=== PATIENT | female | born 1950 | race Two or more races ===

== ENCOUNTER → 2018-01-18 | Outpatient (CLI) | payer MEDICARE, MEDICAID | END | disposition home or self-care (01) | LOC: CFH 10:00 | DX: M81.0 Age-related osteoporosis without current pathological fracture (principal); N95.9 Unspecified menopausal and perimenopausal disorder; Z78.0 Asymptomatic menopausal state | CPT/HCPCS: 77080 ==

== ENCOUNTER 2020-04-16 09:17 | Emergency (ER) | payer MEDICARE, MEDICAID ==
[~2020-04-16] VITALS: Ht 152.4 cm; Wt 65.0 kg
--- NOTE | 2020-04-16 09:46 | NUR ---
PT WITH C/O COUCH AND FEVER LIKE SYMPTOMS X1 WEEK. PT STATES SIG OTHER WITH SAME SYMPTOMS. PT DESCRIBES PAIN "PINPOINT IN MY L UPPER BACK" NO SOB REPORTED. PT ALSO HAS HEALING SHINGLE RASH ON CHEST. ERMD IN TO EVAL PT, AWAITING ORDERS AT THIS TIME, PT TO ALL MONITORS
[2020-04-16] MEDS ORDERED: MORPHINE SULFATE 4 MG/ML, 1ML IVPush PRN (10:00)
[2020-04-16] MEDS ORDERED: MORPHINE SULFATE 4 MG/ML, 1ML ONE (10:06)
[2020-04-16 10:14] LABS: BASOPHILS # (AUTO) 0.02 x10^3/uL (0-0.1); BASOPHILS % (AUTO) 0 % (0-1); EOSINOPHILS # (AUTO) 0.01 x10^3/uL (0-0.4); EOSINOPHILS % (AUTO) 0 % (1-7); LYMPHOCYTES # (AUTO) 0.92 x10^3/uL (1-3.4); LYMPHOCYTES % (AUTO) 21 % (22-44); MD NO; MEAN CORPUSCULAR HEMOGLOBIN 28.4 pg (27.0-34.8); MEAN CORPUSCULAR HGB CONC 32.9 g/dL (32.4-35.8); MEAN PLATELET VOLUME 8.4 fL (7.4-10.4); MONOCYTES # (AUTO) 0.66 x10^3/uL (0.2-0.8); MONOCYTES % (AUTO) 15 % (2-9); NEUTROPHILS # (AUTO) 2.77 x10^3/uL (1.8-6.8); NEUTROPHILS % (AUTO) 63 % (42-75); PLATELET COUNT 162 x10^3/uL (130-400); RED BLOOD COUNT 4.67 x10^6/uL (3.82-5.3); RED CELL DISTRIBUTION WIDTH 13.3 % (9.6-15.2)
[2020-04-16 10:24] LABS: ALBUMIN 3.7 g/dL (3.4-5.0); ANION GAP 7 mmol/L (5-15); CALCIUM 8.8 mg/dL (8.5-10.1); CHLORIDE 103 mmol/L (98-107)
[2020-04-16 10:29] LABS: ALANINE AMINOTRANSFERASE 27 U/L (12-78); ALKALINE PHOSPHATASE 59 U/L (45-117); BILIRUBIN,TOTAL 0.7 mg/dL (0.2-1.0); CREATININE 0.72 mg/dL (0.55-1.02); TOTAL PROTEIN 7.4 g/dL (6.4-8.2); TROPONIN I < 0.015 ng/mL (0.000-0.045)
[2020-04-16] MEDS ORDERED: SODIUM CHLORIDE FLUSH 10ML SYR IVF ONE (11:00)
--- NOTE | 2020-04-16 12:27 | NUR ---
ERMD IN TO EVAL PT, ADDITIONAL ORDERS RECIEVED. AWAITING CT. VSS, NAD NOTED
--- NOTE | 2020-04-16 13:43 | NUR ---
PT ASSISTED TO BSC WITH CGA. TOLERATED WELL. PT NOW TO CT
[2020-04-16] MEDS ORDERED: OMNIPAQUE 350 MG/ML, 75ML BOTTLE ONE (14:30)
--- NOTE | 2020-04-16 15:03 | NUR ---
UPON DISCHARGING PATIENT, PATIENT EXPRESSED RECURRENT PAIN IN BACK. ERP MADE AWARE AND WILL RE-EVALUATE PATIENT PRIOR TO DISCHARGE
--- NOTE | 2020-04-16 15:21 | NUR ---
ALL QUESTIONS ANSWERED BY ERP AND THIS RN. PATIENT DENIES ANY FURTHER QUESTIONS OR NEEDS AND VERBALIZES UNDERSTANDING OF FOLLOW UP INSTRUCTIONS. PATIENT INSTRUCTED TO QUARANTINE AT HOME UNTIL RESULT OF COVID SWAB IS DETERMINED. PATIENT AMBULATORY IN ROOM WITH STEADY GAIT, WHEELED TO DISCHARGE PER REQUEST. DAUGHTER WITH PATIENT FOR SAFE DISCHARGE
[2020-04-16 15:23] VITALS: BP 119/64
== END 2020-04-16 15:25 | disposition home or self-care (01) ==
LOC: ED 09:48
DX: U07.1 COVID-19 (principal); R07.89 Other chest pain; I10 Essential (primary) hypertension; I44.7 Left bundle-branch block, unspecified; R05 Cough; R50.9 Fever, unspecified; R06.02 Shortness of breath
CPT/HCPCS: 36415; 71045; 71260; 80053; 84145; 84484; 85025; 85379; 87635; 93005; 96374; 99285; J2270; Q9967